=== PATIENT | male | born 1965 | race Caucasian/White ===

== ENCOUNTER 2022-08-06 18:29 | Inpatient (IN) | payer MEDICARE, MEDICAID, SELFPAY ==
[2022-08-06 20:22] VITALS: BMI 32.5
[2022-08-06] MEDS: Aspirin Enteric Coated 81 MG TABLET.DR PO (22:11)
[2022-08-06] MEDS: traZODone HCL 50 MG TABLET PO (22:11)
[2022-08-06] MEDS: Gabapentin 400 MG CAPSULE PO (22:12)
[2022-08-06] MEDS: cloNIDine HCL 0.1 MG TABLET PO (22:12)
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
[2022-08-07 07:54] LABS: Alanine Aminotransferase 81 U/L (0-40); Albumin Level 3.4 g/dL (3.5-5.0); Alkaline Phosphatase 59 U/L (39-117); Anion Gap 13 (12-20); Aspartate Amino Transferase 76 U/L (5-37); Bilirubin Total 0.4 mg/dL (0.0-1.0); Blood Urea Nitrogen 12 mg/dL (9-16); Calcium 9.2 mg/dL (8.4-10.2); Carbon Dioxide 28 mmol/L (22-29); Chloride 104 mmol/L (96-108); Cholesterol 128 mg/dL; Creatinine Clr Calc Pharmacy 116.5; Estimated Glomerular Filt Rate > 60; Glucose Fasting 228 mg/dL (60-99); HDL Cholesterol 32 mg/dL; LDL Cholesterol Calculated 60 mg/dl; Potassium 3.9 mmol/L (3.3-5.1); Sodium 141 mmol/L (135-145); Triglycerides 181 mg/dL
[2022-08-07 08:15] VITALS: BP 137/87; PULSE 63; RESP 16; TEMP 36.3; O2SAT 97
[2022-08-07] MEDS: cloNIDine HCL 0.1 MG TABLET PO ×2 (08:50→21:11)
[2022-08-07] MEDS: Atorvastatin Calcium 10 MG TABLET PO (08:50)
[2022-08-07] MEDS: amLODIPine Besylate 10 MG TABLET PO (08:50)
[2022-08-07] MEDS: Cholecalciferol (Vitamin D3) 25 MCG TABLET PO (08:50)
[2022-08-07] MEDS: Ferrous Sulfate 324 MG TABLET.DR 325 MG PO (08:50)
[2022-08-07] MEDS: buPROPion HCl XL 300 MG TAB.ER.24H PO (08:50)
[2022-08-07] MEDS: hydrOXYzine HCL 25 MG TABLET PO (11:51)
--- NOTE | 2022-08-07 11:51 | HO.PM.IMCN ---
History of Present Illness Data of Consult Service Date: 08/07/22 Requesting physician: Rochelle Urena Primary Care Provider: Unknown Physician HPI Reason for consult: medical H&P 57 year old male with history of hypertension, HLD, hx CVA with sequela left sided hemiparesis, current every day smoker 40+ pack year history, history crack cocaine abuse with relapse 1 week ago, everyday MJ smoker, chronic pain disorder, and alcohol use disorder admitted to psychiatry with consult placed to medicine for medical H&P. He states he has never been diagnosed with any chronic lung disease but does experience sob/durant and chronic intermittent cough which has been long standing and states his PCP is aware. Denies orthopnea/PND. No cp or edema. He does follow for routine lung cancer screenings and states most recent CT was without abnormality. He states he drinks 4 25oz beers and several nips every other day. Denies withdrawal symptoms. Reports no desire to quit substance use because he does not care if he lives or dies. Pt with hyperglycemia of 228. Pt denies hx diabetes, states he has been told he is borderline . Review of Systems Review of Systems: General: No fevers, malaise, unintentional weight loss HEENT: No blurred vision, diplopia. No sore throat, nasal congestion, rhinorrhea, sinus pain, ear pain Cardiovascular: No chest pain, palpitations, or leg edema Respiratory: +sob, +durant. +cough. No wheezing GI: No abdominal pain, nausea, vomiting, diarrhea, constipation, melena, hematochezia : No dysuria, hematuria, increased urinary frequency, decreased urinary output MSK: No myalgia, back pain Neuro: No headaches, weakness, paresthesias Skin: No rashes or lesions [facility] Medical History (Updated 08/07/22 @ 14:08 by EMILIA Blount) Alcohol abuse Chronic cough Chronic dyspnea Cigarette smoker Crack cocaine use Hemiparesis affecting left side as late effect of cerebrovascular accident History of CVA (cerebrovascular accident) Hyperlipidemia Hypertension Paronychia of fingers of both hands Type 2 diabetes mellitus Social History Household Members: Other Household Members Other:: 8 roommates Housing: Apartment Do you presently have visiting nurse or other home services: Yes Patient Tobacco Use Status: Current everyday Tobacco user Tobacco use type: Cigarette Cigarette Packs Per Day: 1 Cigarettes Per Day: 20.0 Smoked in Last 30 Days: Yes e-Cigarette/Vaping Use: Never Used Patient Interested in Nicotine Replacement: Yes (Pt wants gum and patch) Patient Given Instructions on How to Stop Smoking: Yes Date Education Initiated: 08/06/22 Second Hand Smoke Exposure: Yes Substance Use Type: Crack/Cocaine and Marijuana Substance Use Frequency: Daily Last Used Substance: Just Prior to Admission Last Used Substance Other:: Pt reports a cocaine binge over 1 week ago; marijuana daily Currently Displaying Signs/Symptoms of Drug Intoxication Withdrawal: No Any prior treatment program specific to substance use: Yes (for cocaine and marijuana in the past, several years ago last time) Have you been hit, kicked, punched, or otherwise hurt by someone within the past year? If so, by whom?: No Do you feel safe in your current relationship?: No Current Relationship Is there a partner from a previous relationship who is making you feel unsafe now?: No Are you made to feel afraid or neglected: No Spiritual Healthcare Practices: None Adventist Healthcare Practices: None Cultural Healthcare Practices: None Advance Directives: No Advance Directives Information Provided: Yes Do you have thoughts of harming others: None Do you have a plan to hurt others: No Plan Recently lost weight without trying: No Eating poorly because of decreased appetite: No Nutrition Risks: No Nutritional Risk, Dental problems and Difficulty chewing Poor oral hygiene: No (Pt reports needs dental care) Meds Allergies Allergy/AdvReac Type Severity Reaction Status Date / Time No Known Allergies Allergy Unverified 04/03/20 18:54 [No Known Allergies*] Active Medications: Current Medications Acetaminophen (Acetaminophen 325 Mg Tablet) 650 mg PO Q6H PRN PRN Reason: Headache/Pain Mild Scale (1-3) Al Hydroxide/Mg Hydroxide (Magnesium Hydrox/Alum Hydrox 30 Ml Oral.Susp) 30 ml PO Q6H PRN PRN Reason: Heartburn/Nausea Amlodipine Besylate (Amlodipine Besylate 10 Mg Tablet) 10 mg PO DAILY TESS; Protocol Last Admin: 08/07/22 08:50 Dose: 10 mg Aspirin (Aspirin Enteric Coated 81 Mg Tablet.) 81 mg PO BEDTIME TESS Last Admin: 08/06/22 22:11 Dose: 81 mg Atorvastatin Calcium (Atorvastatin Calcium 10 Mg Tablet) 10 mg PO DAILY TESS Last Admin: 08/07/22 08:50 Dose: 10 mg Benzocaine (Throat Lozenge, Medicated Lozenge) 1 lozenge MUCOUS MEM Q2H PRN PRN Reason: Sore Throat Bupropion HCl (Bupropion Hcl Xl 300 Mg Tab.Er.24h) 300 mg PO DAILY [facility] Last Admin: 08/07/22 08:50 Dose: 300 mg Clonidine HCl (Clonidine Hcl 0.1 Mg Tablet) 0.1 mg PO BID [facility]; Protocol Last Admin: 08/07/22 08:50 Dose: 0.1 mg Ferrous Sulfate (Ferrous Sulfate 324 Mg Tablet.Dr) 325 mg PO DAILY [facility] Last Admin: 08/07/22 08:50 Dose: 324 mg Gabapentin (Gabapentin 400 Mg Capsule) 400 mg PO BEDTIME [facility] Last Admin: 08/06/22 22:12 Dose: 400 mg Hydroxyzine HCl (Hydroxyzine Hcl 25 Mg Tablet) 25 mg PO Q6H PRN PRN Reason: Anxiety Last Admin: 08/07/22 11:51 Dose: 25 mg Magnesium Hydroxide (Milk Of Magnesia 30 Ml Oral.Susp) 30 ml PO DAILY PRN PRN Reason: Constipation Nicotine (Nicotine 21 Mg Patch.Td24) 21 mg TRANSDERMA DAILY PRN PRN Reason: Nicotine Cravings Nicotine Polacrilex (Nicotine Polacrilex 2 Mg Gum) 4 mg BUCCAL Q2H PRN PRN Reason: Nicotine Cravings Trazodone HCl (Trazodone Hcl 50 Mg Tablet) 50 mg PO BEDTIME PRN PRN Reason: Insomnia Last Admin: 08/06/22 22:11 Dose: 50 mg Vitamin D (Cholecalciferol (Vitamin D3) 25 Mcg Tablet) 25 mcg PO DAILY [facility] Last Admin: 08/07/22 08:50 Dose: 25 mcg Home Medications Medication Instructions Recorded Confirmed Last Taken Type amlodipine 10 mg tablet 1 tab PO DAILY 08/06/22 08/06/22 Unknown History aspirin 81 mg tablet,delayed 1 tab PO BEDTIME 08/06/22 08/06/22 Unknown History release atorvastatin 10 mg tablet 1 tab PO DAILY 08/06/22 08/06/22 Unknown History bupropion HCl 300 mg 24 hr tablet, 1 tab PO QAM 08/06/22 08/06/22 Unknown History extended release cholecalciferol (vitamin D3) 25 1 tab PO DAILY 08/06/22 08/06/22 Unknown History mcg (1,000 unit) tablet clonidine HCl 0.1 mg tablet 1 tab PO BID 08/06/22 08/06/22 Unknown History ferrous sulfate 325 mg (65 mg 1 tab PO QAM 08/06/22 08/06/22 Unknown History iron) tablet (FeroSul) gabapentin 400 mg capsule 1 cap PO BEDTIME 08/06/22 08/06/22 Unknown History ibuprofen 800 mg tablet 1 tab PO DAILY PRN pain 08/06/22 08/06/22 Unknown History lisinopril 40 mg tablet 1 tab PO DAILY 08/06/22 08/06/22 Unknown History multivitamin 1 tab PO DAILY 08/06/22 08/06/22 Unknown History omeprazole 40 mg capsule,delayed 1 cap PO DAILY 08/06/22 08/06/22 Unknown History release ropinirole 1 mg tablet 1 tab PO BEDTIME 08/06/22 08/06/22 Unknown History sertraline 100 mg tablet 1 tab PO DAILY 08/06/22 08/06/22 Unknown History trazodone 100 mg tablet 2 tab PO BEDTIME PRN Insomnia 08/06/22 08/06/22 Unknown History Physical Exam Vital Signs and Narrative: Vital Signs: Last Vital Signs Temp 97.4 F 08/07/22 08:15 Pulse 63 08/07/22 08:15 Resp 16 08/07/22 08:15 BP 137/87 08/07/22 08:15 Pulse Ox 97 08/07/22 08:15 O2 Del Method 08/07/22 08:15 BMI result Body Mass Index 32.5 Constitutional - Awake and Alert, No apparent distress Eyes - PERRLA, EOMI Cardiovascular - S1S2, RRR, No edema Respiratory - Normal lung expansion, Normal respiratory effort, No respiratory distress, rhonchi BLL Gastrointestinal - NT / ND; +BS; No rebound or guarding Extremities - no calf tenderness bilaterally, no swelling Musculoskeletal - Normal inspection, normal ROM Skin - Warm/Dry. Scabbed periungual area with mild erythema multiple fingers bilaterally without purulent drainage Neurological - Alert & oriented x3, CN II-XII in tact, 5/5 strength BUE and BLE Psychological - Appropriate affect Results Labs 08/07/22 07:27 Labs: Laboratory Results - last 24 hr 08/07/22 07:27 Anion Gap 13 Estim Creat Clear Calc 116.5 Estimated GFR > 60 Fasting Glucose 228 H Calcium 9.2 Total Bilirubin 0.4 AST 76 H ALT 81 H Alkaline Phosphatase 59 Total Protein 6.0 L Albumin 3.4 L Triglycerides 181 Cholesterol 128 LDL Cholesterol, Calc 60 HDL Cholesterol 32 Assessment and Plan (1) Routine medical exam: Status: Acute (2) Newly diagnosed diabetes: Status: Acute Plan 57 year old male with history of hypertension, HLD, hx CVA with sequela left sided hemiparesis, current every day smoker 40+ pack year history, history crack cocaine abuse with relapse 1 week ago, everyday MJ smoker, chronic pain disorder, and alcohol use disorder admitted to psychiatry with consult placed to medicine for medical H&P. #Depression/anxiety -Plan per psychiatry #Substance abuse -Plan per psychiatry -Last etoh beverage >48 hours ago. No active w/d symptoms. Monitor for withdrawal #Chronic intermittent cough and shortness of breath -No acute exacerbation. No known chronic lung disease or CHF -No evidence fluid overload -Likely has degree of COPD given significant smoking history -Recommend albuterol inhaler prn -recently underwent Lung CT for lung cancer screening without evidence of significant abnormality per patient -Would recommend outpt follow up with PCP for PFTs outpt. -Counseled on smoking cessation. Continue NRT #Newly diagnosed type 2 diabetes with hyperglycemia -Noted to have hyperglycemia. A1c ordered and consistent with type 2 diabetes at 7.5% (unconntrolled, goal <7.0%) -Recommend diabetes education with nursing staff and outpt -Diabetic diet -POC glucose -Initiate metformin 500mg Daily ER (to reduce risk of side effects) -Humalog on sliding scale with meals for hyperglycemia #Bilateral paronychia -Completed course of keflex. No purulent drainage -Recommend warm soaks #Transaminitis -likely related to NAFLD vs alcohol intake. No abd pain, n/v -Recommend weight loss efforts and outpt follow up #Iron deficiency anemia -No bleeding -Continue ferrous sulfate -Check CBC #HTN- reasonably controlled -Continue lisinopril and amlodipine. Renal function/lytes normal -Monitor BP #History CVA -continue ASA/statin #Hyperglycemia -Hgb A1c added #GERD -continue ppi #Chronic pain disorder -continue gabapentin Thank you for allowing me to participate in this consult. Signing off at this time. Please do not hesitate to call for further questions. Time Spent With Patient Time: Total time managing care of this patient today ____ minutes.
[2022-08-07] MEDS: Nicotine Polacrilex 2 MG GUM 4 MG BUCCAL ×3 (12:24→20:47)
[2022-08-07 13:23] LABS: MANUAL DIFF FLAG NO
[2022-08-07 13:25] LABS: Basophils Absolute Auto 0.1 X10*3/uL (0.0-0.2); Eosinophils Absolute Auto 0.1 X10*3/uL (0.0-0.4); Eosinophils Percent Auto 1.8 % (0-4); Hematocrit 39.5 % (42.0-52.0); Hemoglobin 13.6 g/dl (14.0-18.0); Imm Gran Abs Auto 0.02 X10*3/uL (0.00-0.03); Imm Gran Pct Auto 0.3 % (0.0-0.4); Lymphocytes Absolute Auto 1.7 X10*3/uL (1.2-4.9); Lymphocytes Percent Auto 23.4 % (20-40); Mean Corpuscular HGB Conc 34.4 g/dl (31.0-36.0); Mean Corpuscular Hemoglobin 33.3 pg (27.0-33.0); Mean Corpuscular Volume 96.8 fL (80.0-98.0); Mean Platelet Volume 9.2 fL (9.4-12.4); Monocytes Absolute Auto 0.6 X10*3/uL (0.1-1.2); Monocytes Percent Auto 7.9 % (2-11); Neutrophils Absolute Auto 4.7 x10*3/uL (2.0-8.3); Neutrophils Percent Auto 65.6 % (45-73); Platelet Count 308 X10*3/uL (160-400); Red Blood Count 4.08 X10*6/uL (4.60-5.80); Red Cell Distribution Width 12.4 % (11.0-16.0); White Blood Count 7.2 X10*3/uL (4.8-10.8)
[2022-08-07 13:52] LABS: Estimated Average Glucose 169 mg/dL; Hemoglobin A1c % 7.5 %
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
[2022-08-07 21:00] VITALS: BP 156/90; PULSE 53; TEMP 35.8
[2022-08-07] MEDS: Gabapentin 400 MG CAPSULE PO (21:12)
[2022-08-07] MEDS: Aspirin Enteric Coated 81 MG TABLET.DR PO (21:12)
[2022-08-07] MEDS: traZODone HCL 50 MG TABLET PO (21:14)
[2022-08-07] MEDS: lamoTRIgine 25 MG TABLET PO (21:14)
[2022-08-08 07:19] LABS: Iron 79 mcg/dL (45-160); Percent Iron Saturation 28 % (15-50); Total Iron Binding Capacity 283 mcg/dL (228-428); Unsaturated Iron Binding 204 ug/dL
[2022-08-08 07:34] LABS: Thyroid Stimulating Hormone 4.49 uIU/mL (0.32-4.0)
[2022-08-08 07:48] LABS: Folate 7.9 ng/mL (> or = 4.0); Vitamin B12 279 pg/mL (200-900)
[2022-08-08 09:20] VITALS: BP 142/84; PULSE 64; RESP 16; TEMP 36.3; O2SAT 97
[2022-08-08] MEDS: Ferrous Sulfate 324 MG TABLET.DR 325 MG PO (09:28)
[2022-08-08] MEDS: Cholecalciferol (Vitamin D3) 25 MCG TABLET PO (09:28)
[2022-08-08] MEDS: cloNIDine HCL 0.1 MG TABLET PO ×2 (09:29→21:41)
[2022-08-08] MEDS: Atorvastatin Calcium 10 MG TABLET PO (09:29)
[2022-08-08] MEDS: buPROPion HCl XL 300 MG TAB.ER.24H PO (09:29)
[2022-08-08] MEDS: amLODIPine Besylate 10 MG TABLET PO (09:29)
[2022-08-08] MEDS: Nicotine Polacrilex 2 MG GUM 4 MG BUCCAL ×2 (11:02→16:20)
--- NOTE | 2022-08-08 19:21 | P.PNPSI_ITS ---
Subjective Subjective Date of Service: 08/08/22 Reason For Visit: Recurrent; severe; alcohol use disorder; cocaine u Subjective Notes: Conditional Voluntary Healthcare Proxy: No Guardianship: No Medical Problems Affecting Mental Status: No Interim History: Care reviewed with nursing Tolerating Lamictal Expressed anger with diabetes education. Declines this information and clarifies he will make his own decisions regarding medical treatment and what he will accept. Asks to focus on mental health treatment only while here as this is the reason he came in. Support and education offered. Medication Compliance: Yes Side effects from medications: No Attending Groups: Yes Review of Systems Acute medical concerns: No Medical Review of Systems: unchanged Mental Status Exam Mental Status Exam Patient Appearance: Appropriate Patient Orientation: Person, Place, Time and Situation Level of Consciousness: Alert Patient Behavior: Appropriate, Talkative and Good Eye Contact Mood Description: Depressed Affect Description: Flat Patient Cognition Impaired: No Ability to Follow Directions: Good Speech Pattern: Spontaneous Speech Memory Description: Intact Hallucinations: None Delusions: Not Present Thought Process: Rumination and Goal Oriented Thought Content: positive for Goal Oriented and positive for Suicidal Ideation Depressive Symptoms: Increased Anxiety and Thoughts of /Suicide Judgement: Good Diagnostics Vital Signs (24Hr): Vital Signs - 24 hr 08/07/22 21:00 08/08/22 09:20 Temperature 96.4 F L 97.3 F Pulse Rate 53 64 Respiratory Rate 16 Blood Pressure 156/90 H 142/84 H Pulse Oximetry 97 Oxygen Delivery Method Room Air BMI result Body Mass Index 32.5 Labs 08/07/22 13:07 08/07/22 07:27 Labs: Laboratory Results - last 48 hr 08/07/22 08/07/22 08/07/22 07:27 13:07 13:22 WBC 7.2 RBC 4.08 L Hgb 13.6 L Hct 39.5 L MCV 96.8 MCH 33.3 H MCHC 34.4 RDW 12.4 Plt Count 308 MPV 9.2 L Immature Gran % (Auto) 0.3 Neut % (Auto) 65.6 Lymph % (Auto) 23.4 Routt % (Auto) 7.9 Eos % (Auto) 1.8 Baso % (Auto) 1.0 Lymph # (Auto) 1.7 [place]t # (Auto) 0.6 Eos # (Auto) 0.1 Baso # (Auto) 0.1 Abs Immat Gran (auto) 0.02 Absolute Neuts (auto) 4.7 Absolute Nucleated RBC 0.000 Nucleated RBC % (auto) 0.0 Sodium 141 Potassium 3.9 Chloride 104 Carbon Dioxide 28 Anion Gap 13 BUN 12 Creatinine 0.87 Estim Creat Clear Calc 116.5 Estimated GFR > 60 Fasting Glucose 228 H Estimat Average Glucose 169 Hemoglobin A1c % 7.5 Calcium 9.2 Iron TIBC % Saturation Unsat Iron Binding Total Bilirubin 0.4 AST 76 H ALT 81 H Alkaline Phosphatase 59 Total Protein 6.0 L Albumin 3.4 L Triglycerides 181 Cholesterol 128 LDL Cholesterol, Calc 60 HDL Cholesterol 32 Vitamin B12 Folate TSH 08/08/22 08/08/22 06:47 06:47 WBC RBC Hgb Hct MCV MCH MCHC RDW Plt Count MPV Immature Gran % (Auto) Neut % (Auto) Lymph % (Auto) Routt % (Auto) Eos % (Auto) Baso % (Auto) Lymph # (Auto) Routt # (Auto) Eos # (Auto) Baso # (Auto) Abs Immat Gran (auto) Absolute Neuts (auto) Absolute Nucleated RBC Nucleated RBC % (auto) Sodium Potassium Chloride Carbon Dioxide Anion Gap BUN Creatinine Estim Creat Clear Calc Estimated GFR Fasting Glucose Estimat Average Glucose Hemoglobin A1c % Calcium Iron 79 TIBC 283 % Saturation 28 Unsat Iron Binding 204 Total Bilirubin AST ALT Alkaline Phosphatase Total Protein Albumin Triglycerides Cholesterol LDL Cholesterol, Calc HDL Cholesterol Vitamin B12 279 Folate 7.9 TSH 4.49 H Medications Medications Current Medications Acetaminophen (Acetaminophen 325 Mg Tablet) 650 mg PO Q6H PRN PRN Reason: Headache/Pain Mild Scale (1-3) Al Hydroxide/Mg Hydroxide (Magnesium Hydrox/Alum Hydrox 30 Ml Oral.Susp) 30 ml PO Q6H PRN PRN Reason: Heartburn/Nausea Albuterol Sulfate (Albuterol Sulfate 90 Mcg 8 Gm Inhaler) 2 puff INHALE RQ4H PRN PRN Reason: SOB/Wheezing/cough Amlodipine Besylate (Amlodipine Besylate 10 Mg Tablet) 10 mg PO DAILY [facility]; Protocol Last Admin: 08/08/22 09:29 Dose: 10 mg Aspirin (Aspirin Enteric Coated 81 Mg Tablet.) 81 mg PO BEDTIME [facility] Last Admin: 08/07/22 21:12 Dose: 81 mg Atorvastatin Calcium (Atorvastatin Calcium 10 Mg Tablet) 10 mg PO DAILY [facility] Last Admin: 08/08/22 09:29 Dose: 10 mg Benzocaine (Throat Lozenge, Medicated Lozenge) 1 lozenge MUCOUS MEM Q2H PRN PRN Reason: Sore Throat Bupropion HCl (Bupropion Hcl Xl 300 Mg Tab.Er.24h) 300 mg PO DAILY [facility] Last Admin: 08/08/22 09:29 Dose: 300 mg Clonidine HCl (Clonidine Hcl 0.1 Mg Tablet) 0.1 mg PO BID [facility]; Protocol Last Admin: 08/08/22 09:29 Dose: 0.1 mg Dextrose (Dextrose 50 % 25 Gm/50 Ml Vial) 25 gm IVPUSH Q15M PRN; Protocol PRN Reason: per Hypoglycemia Standing Ord. Ferrous Sulfate (Ferrous Sulfate 324 Mg Tablet.Dr) 325 mg PO DAILY [facility] Last Admin: 08/08/22 09:28 Dose: 324 mg Gabapentin (Gabapentin 400 Mg Capsule) 400 mg PO BEDTIME [facility] Last Admin: 08/07/22 21:12 Dose: 400 mg Glucose (Glucose Gel 15 Gm Gel..Gram.) 15 gm PO Q15M PRN; Protocol PRN Reason: per Hypoglycemia Standing Ord. Hydroxyzine HCl (Hydroxyzine Hcl 25 Mg Tablet) 25 mg PO Q6H PRN PRN Reason: Anxiety Last Admin: 08/07/22 11:51 Dose: 25 mg Insulin Human Lispro (Insulin Lispro 100 Unit/Ml 3 Ml Vial) 0 unit SUBCUT QIDACHS [facility]; Protocol Last Admin: 08/08/22 17:32 Dose: Not Given Lamotrigine (Lamotrigine 25 Mg Tablet) 25 mg PO BEDTIME [facility] Last Admin: 08/07/22 21:14 Dose: 25 mg Loperamide HCl (Loperamide Hcl 2 Mg Capsule) 2 mg PO Q4H PRN PRN Reason: Diarrhea Magnesium Hydroxide (Milk Of Magnesia 30 Ml Oral.Susp) 30 ml PO DAILY PRN PRN Reason: Constipation Metformin HCl (Metformin Hcl Er 500 Mg Tab.Er.24h) 500 mg PO BEDTIME [facility] Last Admin: 08/07/22 21:16 Dose: Not Given Nicotine (Nicotine 21 Mg Patch.Td24) 21 mg TRANSDERMA DAILY PRN PRN Reason: Nicotine Cravings Nicotine Polacrilex (Nicotine Polacrilex 2 Mg Gum) 4 mg BUCCAL Q2H PRN PRN Reason: Nicotine Cravings Last Admin: 08/08/22 16:20 Dose: 4 mg Trazodone HCl (Trazodone Hcl 100 Mg Tablet) 100 mg PO BEDTIME PRN PRN Reason: Insomnia Vitamin D (Cholecalciferol (Vitamin D3) 25 Mcg Tablet) 25 mcg PO DAILY [facility] Last Admin: 08/08/22 09:28 Dose: 25 mcg Allergies Allergies Allergy/AdvReac Type Severity Reaction Status Date / Time No Known Allergies Allergy Unverified 04/03/20 18:54 [No Known Allergies*] Assessment & Plan Assessment & Plan (1) Bipolar disorder: Status: Acute Code(s): F31.9 - Bipolar disorder, unspecified (2) Cannabis use disorder: Status: Acute Code(s): F12.90 - Cannabis use, unspecified, uncomplicated (3) Cocaine use disorder: Status: Acute Code(s): F14.10 - Cocaine abuse, uncomplicated Plan 57yo male, hx of bipolar disorder, alcohol, cocaine, cannabis use disorder. Presents with SI with plan in the context of multiple stressors listed. Plan: B12, Folate, TSH, Iron Profile Lamictal 25 mg HS Collateral contacts Aftercare planning 08/08/22: Continue current plan of care Patient educated on: therapeutic strategies Informed Consent: understands Reason for contiued inpatient stay Substantial Risk for: harm to self and rapid decompensation Time Spent With Patient Time: Total time managing care of this patient today 30____ minutes.
[2022-08-08 21:40] VITALS: BP 152/75; PULSE 55; TEMP 36.2
[2022-08-08] MEDS: traZODone HCL 100 MG TABLET PO (21:40)
[2022-08-08] MEDS: Aspirin Enteric Coated 81 MG TABLET.DR PO (21:41)
[2022-08-08] MEDS: lamoTRIgine 25 MG TABLET PO (21:41)
[2022-08-08] MEDS: Gabapentin 400 MG CAPSULE PO (21:41)
[2022-08-09 09:53] VITALS: BP 156/76; PULSE 58; RESP 16; TEMP 35.9; O2SAT 96
[2022-08-09] MEDS: Ferrous Sulfate 324 MG TABLET.DR 325 MG PO (09:56)
[2022-08-09] MEDS: amLODIPine Besylate 10 MG TABLET PO (09:57)
[2022-08-09] MEDS: buPROPion HCl XL 300 MG TAB.ER.24H PO (09:57)
[2022-08-09] MEDS: Atorvastatin Calcium 10 MG TABLET PO (09:57)
[2022-08-09] MEDS: Cholecalciferol (Vitamin D3) 25 MCG TABLET PO (09:57)
[2022-08-09] MEDS: cloNIDine HCL 0.1 MG TABLET PO ×2 (09:57→22:04)
[2022-08-09] MEDS: Nicotine Polacrilex 2 MG GUM 4 MG BUCCAL ×2 (09:57→16:14)
[2022-08-09] MEDS: hydrOXYzine HCL 25 MG TABLET PO (12:23)
--- NOTE | 2022-08-09 14:10 | HO.PSYCHPN ---
Subjective Subjective Date of Service: 08/09/22 Reason For Visit: Recurrent; severe; alcohol use disorder; cocaine u Subjective Notes: Conditional Voluntary Healthcare Proxy: No Guardianship: No Medical Problems Affecting Mental Status: No Interim History: Review of diagnostics, low hgb, hct, normal iron profile, B12, Folate, elevated LFT's, triglycerides, A1C and TSH. Copies given to pt. He agrees to MVI. Tolerating Lamictal Looking forward to addressing aftercare needs and talking with team about his housing and getting their input on his options. Believes, as he has a voucher, he has options. However, he is told he does not, and wants more clarification. Reports sleep issues. Discussed last natasha increase in Trazodone and options should this continue to be less effective. Medication Compliance: Yes Side effects from medications: No Attending Groups: Yes Review of Systems Acute medical concerns: No Medical Review of Systems: unchanged Mental Status Exam Mental Status Exam Patient Appearance: Appropriate Patient Orientation: Person, Place, Time and Situation Level of Consciousness: Alert Patient Behavior: Appropriate, Talkative and Good Eye Contact Mood Description: Depressed Affect Description: Flat Patient Cognition Impaired: No Ability to Follow Directions: Good Speech Pattern: Spontaneous Speech Memory Description: Intact Hallucinations: None Delusions: Not Present Thought Process: Rumination and Goal Oriented Thought Content: positive for Goal Oriented and positive for Suicidal Ideation Depressive Symptoms: Increased Anxiety and Thoughts of /Suicide Judgement: Good Diagnostics Vital Signs (24Hr): Vital Signs - 24 hr 08/08/22 21:40 08/09/22 09:53 Temperature 97.1 F 96.6 F L Pulse Rate 55 58 Respiratory Rate 16 Blood Pressure 152/75 H 156/76 H Pulse Oximetry 96 Oxygen Delivery Method Room Air BMI result Body Mass Index 32.5 Labs 08/07/22 13:07 08/07/22 07:27 Labs: Laboratory Results - last 48 hr 08/08/22 08/08/22 06:47 06:47 Iron 79 TIBC 283 % Saturation 28 Unsat Iron Binding 204 Vitamin B12 279 Folate 7.9 TSH 4.49 H Medications Medications Current Medications Acetaminophen (Acetaminophen 325 Mg Tablet) 650 mg PO Q6H PRN PRN Reason: Headache/Pain Mild Scale (1-3) Al Hydroxide/Mg Hydroxide (Magnesium Hydrox/Alum Hydrox 30 Ml Oral.Susp) 30 ml PO Q6H PRN PRN Reason: Heartburn/Nausea Albuterol Sulfate (Albuterol Sulfate 90 Mcg 8 Gm Inhaler) 2 puff INHALE RQ4H PRN PRN Reason: SOB/Wheezing/cough Amlodipine Besylate (Amlodipine Besylate 10 Mg Tablet) 10 mg PO DAILY [facility]; Protocol Last Admin: 08/09/22 09:57 Dose: 10 mg Aspirin (Aspirin Enteric Coated 81 Mg Tablet.) 81 mg PO BEDTIME [facility] Last Admin: 08/08/22 21:41 Dose: 81 mg Atorvastatin Calcium (Atorvastatin Calcium 10 Mg Tablet) 10 mg PO BEDTIME [facility] Benzocaine (Throat Lozenge, Medicated Lozenge) 1 lozenge MUCOUS MEM Q2H PRN PRN Reason: Sore Throat Bupropion HCl (Bupropion Hcl Xl 300 Mg Tab.Er.24h) 300 mg PO DAILY [facility] Last Admin: 08/09/22 09:57 Dose: 300 mg Clonidine HCl (Clonidine Hcl 0.1 Mg Tablet) 0.1 mg PO BID [facility]; Protocol Last Admin: 08/09/22 09:57 Dose: 0.1 mg Dextrose (Dextrose 50 % 25 Gm/50 Ml Vial) 25 gm IVPUSH Q15M PRN; Protocol PRN Reason: per Hypoglycemia Standing Ord. Ferrous Sulfate (Ferrous Sulfate 324 Mg Tablet.) 325 mg PO DAILY [facility] Last Admin: 08/09/22 09:56 Dose: 325 mg Gabapentin (Gabapentin 400 Mg Capsule) 400 mg PO BEDTIME [facility] Last Admin: 08/08/22 21:41 Dose: 400 mg Glucose (Glucose Gel 15 Gm Gel..Gram.) 15 gm PO Q15M PRN; Protocol PRN Reason: per Hypoglycemia Standing Ord. Hydroxyzine HCl (Hydroxyzine Hcl 25 Mg Tablet) 25 mg PO Q6H PRN PRN Reason: Anxiety Last Admin: 08/09/22 12:23 Dose: 25 mg Insulin Human Lispro (Insulin Lispro 100 Unit/Ml 3 Ml Vial) 0 unit SUBCUT QIDACHS [facility]; Protocol Last Admin: 08/09/22 11:21 Dose: Not Given Lamotrigine (Lamotrigine 25 Mg Tablet) 25 mg PO BEDTIME [facility] Last Admin: 08/08/22 21:41 Dose: 25 mg Loperamide HCl (Loperamide Hcl 2 Mg Capsule) 2 mg PO Q4H PRN PRN Reason: Diarrhea Magnesium Hydroxide (Milk Of Magnesia 30 Ml Oral.Susp) 30 ml PO DAILY PRN PRN Reason: Constipation Metformin HCl (Metformin Hcl Er 500 Mg Tab.Er.24h) 500 mg PO BEDTIME [facility] Last Admin: 08/08/22 22:19 Dose: Not Given Multivitamins/Vitamin C (Multivitamin Tablet) 1 tab PO DAILY [facility] Nicotine (Nicotine 21 Mg Patch.Td24) 21 mg TRANSDERMA DAILY PRN PRN Reason: Nicotine Cravings Nicotine Polacrilex (Nicotine Polacrilex 2 Mg Gum) 4 mg BUCCAL Q2H PRN PRN Reason: Nicotine Cravings Last Admin: 08/09/22 09:57 Dose: 4 mg Trazodone HCl (Trazodone Hcl 100 Mg Tablet) 100 mg PO BEDTIME PRN PRN Reason: Insomnia Last Admin: 08/08/22 21:40 Dose: 100 mg Vitamin D (Cholecalciferol (Vitamin D3) 25 Mcg Tablet) 25 mcg PO DAILY [facility] Last Admin: 08/09/22 09:57 Dose: 25 mcg Allergies Allergies Allergy/AdvReac Type Severity Reaction Status Date / Time No Known Allergies Allergy Unverified 04/03/20 18:54 [No Known Allergies*] Assessment & Plan Assessment & Plan (1) Bipolar disorder: Status: Acute Code(s): F31.9 - Bipolar disorder, unspecified (2) Cannabis use disorder: Status: Acute Code(s): F12.90 - Cannabis use, unspecified, uncomplicated (3) Cocaine use disorder: Status: Acute Code(s): F14.10 - Cocaine abuse, uncomplicated Plan 57yo male, hx of bipolar disorder, alcohol, cocaine, cannabis use disorder. Presents with SI with plan in the context of multiple stressors listed. Plan: B12, Folate, TSH, Iron Profile Lamictal 25 mg HS Collateral contacts Aftercare planning 08/09/22: Continue Trazodone at 100 mg HS. If ineffective consider Mirtazapine trial MVI 1 daily Patient educated on: medication risk/benefits Informed Consent: understands Reason for contiued inpatient stay Substantial Risk for: harm to self and rapid decompensation Time Spent With Patient Time: Total time managing care of this patient today _30___ minutes.
--- NOTE | 2022-08-09 19:38 | PC.NURSE ---
Patient mentioned to tw that he had a medication for Restless Leg Syndrome (probably Requip) and he would like to have the medicatin ordered while he is on M5
[2022-08-09 21:00] VITALS: BP 159/82; PULSE 69; TEMP 36.2; O2SAT 95
[2022-08-09] MEDS: rOPINIRole HCL 1 MG TABLET PO (22:04)
[2022-08-09] MEDS: lamoTRIgine 25 MG TABLET PO (22:04)
[2022-08-09] MEDS: Aspirin Enteric Coated 81 MG TABLET.DR PO (22:04)
[2022-08-09] MEDS: Gabapentin 400 MG CAPSULE PO (22:04)
[2022-08-09] MEDS: metFORMIN HCl ER 500 MG TAB.ER.24H PO (22:05)
[2022-08-10 08:52] VITALS: BP 131/58; PULSE 58; RESP 16; TEMP 36.4; O2SAT 96
[2022-08-10] MEDS: amLODIPine Besylate 10 MG TABLET PO (08:54)
[2022-08-10] MEDS: Omeprazole 40 MG CAPSULE.DR PO (08:54)
[2022-08-10] MEDS: Ferrous Sulfate 324 MG TABLET.DR 325 MG PO (08:54)
[2022-08-10] MEDS: Multivitamin TABLET 1 TAB PO (08:55)
[2022-08-10] MEDS: Cholecalciferol (Vitamin D3) 25 MCG TABLET PO (08:55)
[2022-08-10] MEDS: buPROPion HCl XL 300 MG TAB.ER.24H PO (08:55)
[2022-08-10] MEDS: cloNIDine HCL 0.1 MG TABLET PO ×2 (08:55→19:43)
[2022-08-10] MEDS: Sertraline HCL 25 MG TABLET PO (09:30)
[2022-08-10] MEDS: Nicotine Polacrilex 2 MG GUM 4 MG BUCCAL ×3 (09:30→19:42)
--- NOTE | 2022-08-10 13:19 | HO.PSYCHPN ---
Subjective Subjective Date of Service: 08/10/22 Reason For Visit: Recurrent; severe; alcohol use disorder; cocaine u Subjective Notes: Conditional Voluntary Healthcare Proxy: No Guardianship: No Medical Problems Affecting Mental Status: No Interim History: Medicine review with pt to discuss his list of meds, rationale for Rx and what had changed since admit. Last evening pt had difficulty with requip not being ordered. When discussed with pharmacy, it appears Gabapentin had replaced it, however, this was not pt's understanding, so he has both now for mgt of RLS. Today, changed Atarax and re-started Lisinopril. Reports he was able to sleep-up at 330 d/t room-mate. Will begin to check into housing voucher specifics with [employer]-states he was told the voucher was only for the building he is in, however, he reports living conditions which are not safe and conducive to his health improving. Reports tolerating regime without SE. Attending some group activities. Medication Compliance: Yes Side effects from medications: No Attending Groups: Intermittent Review of Systems Acute medical concerns: No Medical Review of Systems: unchanged Mental Status Exam Mental Status Exam Patient Appearance: Appropriate Patient Orientation: Person, Place, Time and Situation Level of Consciousness: Alert Patient Behavior: Appropriate, Talkative and Good Eye Contact Mood Description: Depressed Affect Description: Flat Patient Cognition Impaired: No Ability to Follow Directions: Good Speech Pattern: Spontaneous Speech Memory Description: Intact Hallucinations: None Delusions: Not Present Thought Process: Rumination and Goal Oriented Thought Content: positive for Goal Oriented and positive for Suicidal Ideation Depressive Symptoms: Increased Anxiety and Thoughts of /Suicide Judgement: Good Diagnostics Vital Signs (24Hr): Vital Signs - 24 hr 08/09/22 21:00 08/10/22 08:52 Temperature 97.2 F 97.6 F Pulse Rate 69 58 Respiratory Rate 16 Blood Pressure 159/82 H 131/58 L Pulse Oximetry 95 96 Oxygen Delivery Method Room Air Room Air BMI result Body Mass Index 32.5 Labs 08/07/22 13:07 08/07/22 07:27 Medications Medications Current Medications Acetaminophen (Acetaminophen 325 Mg Tablet) 650 mg PO Q6H PRN PRN Reason: Headache/Pain Mild Scale (1-3) Al Hydroxide/Mg Hydroxide (Magnesium Hydrox/Alum Hydrox 30 Ml Oral.Susp) 30 ml PO Q6H PRN PRN Reason: Heartburn/Nausea Albuterol Sulfate (Albuterol Sulfate 90 Mcg 8 Gm Inhaler) 2 puff INHALE RQ4H PRN PRN Reason: SOB/Wheezing/cough Amlodipine Besylate (Amlodipine Besylate 10 Mg Tablet) 10 mg PO DAILY [facility]; Protocol Last Admin: 08/10/22 08:54 Dose: 10 mg Aspirin (Aspirin Enteric Coated 81 Mg Tablet.) 81 mg PO BEDTIME [facility] Last Admin: 08/09/22 22:04 Dose: 81 mg Atorvastatin Calcium (Atorvastatin Calcium 10 Mg Tablet) 10 mg PO BEDTIME [facility] Benzocaine (Throat Lozenge, Medicated Lozenge) 1 lozenge MUCOUS MEM Q2H PRN PRN Reason: Sore Throat Bupropion HCl (Bupropion Hcl Xl 300 Mg Tab.Er.24h) 300 mg PO DAILY [facility] Last Admin: 08/10/22 08:55 Dose: 300 mg Clonidine HCl (Clonidine Hcl 0.1 Mg Tablet) 0.1 mg PO BID [facility]; Protocol Last Admin: 08/10/22 08:55 Dose: 0.1 mg Dextrose (Dextrose 50 % 25 Gm/50 Ml Vial) 25 gm IVPUSH Q15M PRN; Protocol PRN Reason: per Hypoglycemia Standing Ord. Ferrous Sulfate (Ferrous Sulfate 324 Mg Tablet.) 325 mg PO DAILY [facility] Last Admin: 08/10/22 08:54 Dose: 325 mg Gabapentin (Gabapentin 400 Mg Capsule) 400 mg PO BEDTIME [facility] Last Admin: 08/09/22 22:04 Dose: 400 mg Glucose (Glucose Gel 15 Gm Gel..Gram.) 15 gm PO Q15M PRN; Protocol PRN Reason: per Hypoglycemia Standing Ord. Hydroxyzine HCl (Hydroxyzine Hcl 25 Mg Tablet) 25 mg PO Q6H PRN PRN Reason: Anxiety Last Admin: 08/09/22 12:23 Dose: 25 mg Insulin Human Lispro (Insulin Lispro 100 Unit/Ml 3 Ml Vial) 0 unit SUBCUT QIDACHS [facility]; Protocol Last Admin: 08/10/22 12:40 Dose: Not Given Lamotrigine (Lamotrigine 25 Mg Tablet) 25 mg PO BEDTIME [facility] Last Admin: 08/09/22 22:04 Dose: 25 mg Loperamide HCl (Loperamide Hcl 2 Mg Capsule) 2 mg PO Q4H PRN PRN Reason: Diarrhea Magnesium Hydroxide (Milk Of Magnesia 30 Ml Oral.Susp) 30 ml PO DAILY PRN PRN Reason: Constipation Metformin HCl (Metformin Hcl Er 500 Mg Tab.Er.24h) 500 mg PO BEDTIME [facility] Last Admin: 08/09/22 22:05 Dose: 500 mg Multivitamins/Vitamin C (Multivitamin Tablet) 1 tab PO DAILY [facility] Last Admin: 08/10/22 08:55 Dose: 1 tab Nicotine (Nicotine 21 Mg Patch.Td24) 21 mg TRANSDERMA DAILY PRN PRN Reason: Nicotine Cravings Nicotine Polacrilex (Nicotine Polacrilex 2 Mg Gum) 4 mg BUCCAL Q2H PRN PRN Reason: Nicotine Cravings Last Admin: 08/10/22 09:30 Dose: 4 mg Omeprazole (Omeprazole 40 Mg Capsule.Dr) 40 mg PO DAILY@0630 [facility] Last Admin: 08/10/22 08:54 Dose: 40 mg Ropinirole HCl (Ropinirole Hcl 1 Mg Tablet) 1 mg PO BEDTIME [facility] Last Admin: 08/09/22 22:04 Dose: 1 mg Sertraline HCl (Sertraline Hcl 25 Mg Tablet) 25 mg PO DAILY [facility] Last Admin: 08/10/22 09:30 Dose: 25 mg Trazodone HCl (Trazodone Hcl 100 Mg Tablet) 100 mg PO BEDTIME PRN PRN Reason: Insomnia Last Admin: 08/08/22 21:40 Dose: 100 mg Vitamin D (Cholecalciferol (Vitamin D3) 25 Mcg Tablet) 25 mcg PO DAILY [facility] Last Admin: 08/10/22 08:55 Dose: 25 mcg Allergies Allergies Allergy/AdvReac Type Severity Reaction Status Date / Time No Known Allergies Allergy Unverified 04/03/20 18:54 [No Known Allergies*] Assessment & Plan Assessment & Plan (1) Bipolar disorder: Status: Acute Code(s): F31.9 - Bipolar disorder, unspecified (2) Cannabis use disorder: Status: Acute Code(s): F12.90 - Cannabis use, unspecified, uncomplicated (3) Cocaine use disorder: Status: Acute Code(s): F14.10 - Cocaine abuse, uncomplicated Plan 57yo male, hx of bipolar disorder, alcohol, cocaine, cannabis use disorder. Presents with SI with plan in the context of multiple stressors listed. Plan: B12, Folate, TSH, Iron Profile Lamictal 25 mg HS Collateral contacts Aftercare planning 1/23/23: Continue Trazodone at 100 mg HS. If ineffective consider Mirtazapine trial MVI 1 daily 08/10/22: Increase hydroxyzine to 50 mg prn Reinstate Lisinopril 40 mg a.m-pt taking both antihypertensives [employer] Patient educated on: medication risk/benefits and therapeutic strategies Informed Consent: understands Reason for contiued inpatient stay Substantial Risk for: harm to self and rapid decompensation Time Spent With Patient Time: Total time managing care of this patient today _25___ minutes.
[2022-08-10] MEDS: rOPINIRole HCL 1 MG TABLET PO (19:43)
[2022-08-10] MEDS: metFORMIN HCl ER 500 MG TAB.ER.24H PO (19:43)
[2022-08-10] MEDS: Atorvastatin Calcium 10 MG TABLET PO (19:43)
[2022-08-10] MEDS: Aspirin Enteric Coated 81 MG TABLET.DR PO (19:43)
[2022-08-10] MEDS: Gabapentin 400 MG CAPSULE PO (19:43)
[2022-08-10] MEDS: lamoTRIgine 25 MG TABLET PO (19:44)
[2022-08-10 22:00] VITALS: BP 148/68; PULSE 68; RESP 16; TEMP 36.4; O2SAT 96
[2022-08-11 06:00] VITALS: BP 180/93; PULSE 60; RESP 18
[2022-08-11] MEDS: buPROPion HCl XL 300 MG TAB.ER.24H PO (08:06)
[2022-08-11] MEDS: Omeprazole 40 MG CAPSULE.DR PO (08:06)
[2022-08-11] MEDS: Sertraline HCL 25 MG TABLET PO (08:06)
[2022-08-11] MEDS: lisinopriL 40 MG TABLET PO (08:06)
[2022-08-11] MEDS: cloNIDine HCL 0.1 MG TABLET PO ×2 (08:06→20:47)
[2022-08-11] MEDS: amLODIPine Besylate 10 MG TABLET PO (08:06)
[2022-08-11] MEDS: Ferrous Sulfate 324 MG TABLET.DR 325 MG PO (08:06)
[2022-08-11] MEDS: Multivitamin TABLET 1 TAB PO (08:06)
[2022-08-11] MEDS: Cholecalciferol (Vitamin D3) 25 MCG TABLET PO (08:07)
--- NOTE | 2022-08-11 08:53 | HO.PSYCHPN ---
Subjective Subjective Date of Service: 08/11/22 Reason For Visit: Recurrent; severe; alcohol use disorder; cocaine u Subjective Notes: Conditional Voluntary Healthcare Proxy: No Guardianship: No Medical Problems Affecting Mental Status: No Interim History: Reports poor sleep due to angry episode. I went nuts and blew up. States team tw him about blood sugar monitoring-told him he would if not willing to monitor blood sugar-He stated he made the decision to take Metformin and nothing else. States he was told he probably would not have the ability to make decisions much longer if he did not manage the blood sugar. Expressed a great deal of anger and frustration (which appears fear based)- supportive education offered. Medication Compliance: Yes Side effects from medications: No Attending Groups: Intermittent Review of Systems Acute medical concerns: No Medical Review of Systems: unchanged Mental Status Exam Mental Status Exam Patient Appearance: Appropriate Patient Orientation: Person, Place, Time and Situation Level of Consciousness: Alert Patient Behavior: Appropriate, Talkative and Good Eye Contact Mood Description: Depressed Affect Description: Flat Patient Cognition Impaired: No Ability to Follow Directions: Good Speech Pattern: Spontaneous Speech Memory Description: Intact Hallucinations: None Delusions: Not Present Thought Process: Rumination and Goal Oriented Thought Content: positive for Goal Oriented and positive for Suicidal Ideation (denies) Depressive Symptoms: Increased Anxiety and Thoughts of /Suicide (denies) Judgement: Good Diagnostics Vital Signs (24Hr): Vital Signs - 24 hr 08/10/22 22:00 08/11/22 06:00 Temperature 97.6 F Pulse Rate 68 60 Respiratory Rate 16 18 Blood Pressure 148/68 H 180/93 H Pulse Oximetry 96 Oxygen Delivery Method Room Air BMI result Body Mass Index 32.5 Labs 08/07/22 13:07 08/07/22 07:27 Medications Medications Current Medications Acetaminophen (Acetaminophen 325 Mg Tablet) 650 mg PO Q6H PRN PRN Reason: Headache/Pain Mild Scale (1-3) Al Hydroxide/Mg Hydroxide (Magnesium Hydrox/Alum Hydrox 30 Ml Oral.Susp) 30 ml PO Q6H PRN PRN Reason: Heartburn/Nausea Albuterol Sulfate (Albuterol Sulfate 90 Mcg 8 Gm Inhaler) 2 puff INHALE RQ4H PRN PRN Reason: SOB/Wheezing/cough Amlodipine Besylate (Amlodipine Besylate 10 Mg Tablet) 10 mg PO DAILY [facility]; Protocol Last Admin: 08/11/22 08:06 Dose: 10 mg Aspirin (Aspirin Enteric Coated 81 Mg Tablet.) 81 mg PO BEDTIME [facility] Last Admin: 08/10/22 19:43 Dose: 81 mg Atorvastatin Calcium (Atorvastatin Calcium 10 Mg Tablet) 10 mg PO BEDTIME [facility] Last Admin: 08/10/22 19:43 Dose: 10 mg Benzocaine (Throat Lozenge, Medicated Lozenge) 1 lozenge MUCOUS MEM Q2H PRN PRN Reason: Sore Throat Bupropion HCl (Bupropion Hcl Xl 300 Mg Tab.Er.24h) 300 mg PO DAILY [facility] Last Admin: 08/11/22 08:06 Dose: 300 mg Clonidine HCl (Clonidine Hcl 0.1 Mg Tablet) 0.1 mg PO BID [facility]; Protocol Last Admin: 08/11/22 08:06 Dose: 0.1 mg Dextrose (Dextrose 50 % 25 Gm/50 Ml Vial) 25 gm IVPUSH Q15M PRN; Protocol PRN Reason: per Hypoglycemia Standing Ord. Ferrous Sulfate (Ferrous Sulfate 324 Mg Tablet.) 325 mg PO DAILY [facility] Last Admin: 08/11/22 08:06 Dose: 324 mg Gabapentin (Gabapentin 400 Mg Capsule) 400 mg PO BEDTIME [facility] Last Admin: 08/10/22 19:43 Dose: 400 mg Glucose (Glucose Gel 15 Gm Gel..Gram.) 15 gm PO Q15M PRN; Protocol PRN Reason: per Hypoglycemia Standing Ord. Hydroxyzine HCl (Hydroxyzine Hcl 50 Mg Tablet) 50 mg PO Q6H PRN PRN Reason: Anxiety Insulin Human Lispro (Insulin Lispro 100 Unit/Ml 3 Ml Vial) 0 unit SUBCUT QIDACHS [facility]; Protocol Last Admin: 08/11/22 08:09 Dose: Not Given Lamotrigine (Lamotrigine 25 Mg Tablet) 25 mg PO BEDTIME [facility] Last Admin: 08/10/22 19:44 Dose: 25 mg Lisinopril (Lisinopril 40 Mg Tablet) 40 mg PO DAILY [facility]; Protocol Last Admin: 08/11/22 08:06 Dose: 40 mg Loperamide HCl (Loperamide Hcl 2 Mg Capsule) 2 mg PO Q4H PRN PRN Reason: Diarrhea Magnesium Hydroxide (Milk Of Magnesia 30 Ml Oral.Susp) 30 ml PO DAILY PRN PRN Reason: Constipation Metformin HCl (Metformin Hcl Er 500 Mg Tab.Er.24h) 500 mg PO BEDTIME [facility] Last Admin: 08/10/22 19:43 Dose: 500 mg Multivitamins/Vitamin C (Multivitamin Tablet) 1 tab PO DAILY [facility] Last Admin: 08/11/22 08:06 Dose: 1 tab Nicotine (Nicotine 21 Mg Patch.Td24) 21 mg TRANSDERMA DAILY PRN PRN Reason: Nicotine Cravings Nicotine Polacrilex (Nicotine Polacrilex 2 Mg Gum) 4 mg BUCCAL Q2H PRN PRN Reason: Nicotine Cravings Last Admin: 08/10/22 19:42 Dose: 4 mg Omeprazole (Omeprazole 40 Mg Capsule.Dr) 40 mg PO DAILY@0630 [facility] Last Admin: 08/11/22 08:06 Dose: 40 mg Ropinirole HCl (Ropinirole Hcl 1 Mg Tablet) 1 mg PO BEDTIME [facility] Last Admin: 08/10/22 19:43 Dose: 1 mg Sertraline HCl (Sertraline Hcl 25 Mg Tablet) 25 mg PO DAILY [facility] Last Admin: 08/11/22 08:06 Dose: 25 mg Trazodone HCl (Trazodone Hcl 100 Mg Tablet) 100 mg PO BEDTIME PRN PRN Reason: Insomnia Last Admin: 08/08/22 21:40 Dose: 100 mg Vitamin D (Cholecalciferol (Vitamin D3) 25 Mcg Tablet) 25 mcg PO DAILY [facility] Last Admin: 08/11/22 08:07 Dose: 25 mcg Allergies Allergies Allergy/AdvReac Type Severity Reaction Status Date / Time No Known Allergies Allergy Unverified 04/03/20 18:54 [No Known Allergies*] Assessment & Plan Assessment & Plan (1) Bipolar disorder: Status: Acute Code(s): F31.9 - Bipolar disorder, unspecified (2) Cannabis use disorder: Status: Acute Code(s): F12.90 - Cannabis use, unspecified, uncomplicated (3) Cocaine use disorder: Status: Acute Code(s): F14.10 - Cocaine abuse, uncomplicated Plan 57yo male, hx of bipolar disorder, alcohol, cocaine, cannabis use disorder. Presents with SI with plan in the context of multiple stressors listed. Plan: B12, Folate, TSH, Iron Profile Lamictal 25 mg HS Collateral contacts Aftercare planning 08/09/22: Continue Trazodone at 100 mg HS. If ineffective consider Mirtazapine trial MVI 1 daily 1/24/23: Increase hydroxyzine to 50 mg prn Reinstate Lisinopril 40 mg a.m-pt taking both antihypertensives PUBLIC HEALTH REPRESENTATIVE 08/11/22 Message left with [facility] to discuss status of pt's voucher Continue current regime Patient educated on: medication risk/benefits, therapeutic strategies and medical condition Informed Consent: further education needed Reason for contiued inpatient stay Substantial Risk for: harm to self, rapid decompensation and med/psych decompensation Time Spent With Patient Time: Total time managing care of this patient today __35__ minutes.
[2022-08-11] MEDS: Nicotine Polacrilex 2 MG GUM 4 MG BUCCAL ×3 (09:41→20:46)
[2022-08-11 20:40] VITALS: BP 160/95; PULSE 74; TEMP 36.2; O2SAT 97
[2022-08-11] MEDS: Gabapentin 400 MG CAPSULE PO (20:47)
[2022-08-11] MEDS: rOPINIRole HCL 1 MG TABLET PO (20:47)
[2022-08-11] MEDS: metFORMIN HCl ER 500 MG TAB.ER.24H PO (20:47)
[2022-08-11] MEDS: Aspirin Enteric Coated 81 MG TABLET.DR PO (20:47)
[2022-08-11] MEDS: lamoTRIgine 25 MG TABLET PO (20:47)
[2022-08-11] MEDS: Atorvastatin Calcium 10 MG TABLET PO (20:47)
[2022-08-12] MEDS: cloNIDine HCL 0.1 MG TABLET PO ×2 (07:51→21:46)
[2022-08-12] MEDS: buPROPion HCl XL 300 MG TAB.ER.24H PO (07:51)
[2022-08-12] MEDS: Cholecalciferol (Vitamin D3) 25 MCG TABLET PO (07:51)
[2022-08-12] MEDS: Sertraline HCL 25 MG TABLET PO (07:51)
[2022-08-12] MEDS: Multivitamin TABLET 1 TAB PO (07:51)
[2022-08-12] MEDS: lisinopriL 40 MG TABLET PO (07:52)
[2022-08-12] MEDS: Omeprazole 40 MG CAPSULE.DR PO (07:52)
[2022-08-12] MEDS: Ferrous Sulfate 324 MG TABLET.DR 325 MG PO (07:52)
[2022-08-12] MEDS: amLODIPine Besylate 10 MG TABLET PO (07:53)
[2022-08-12 08:00] VITALS: BP 137/84; PULSE 61; RESP 16; TEMP 36; O2SAT 96
[2022-08-12 08:01] VITALS: BMI 32.3
[2022-08-12] MEDS: Nicotine Polacrilex 2 MG GUM 4 MG BUCCAL ×3 (10:36→17:46)
--- NOTE | 2022-08-12 14:46 | HO.PSYCHPN ---
Subjective Subjective Date of Service: 08/12/22 Reason For Visit: Recurrent; severe; alcohol use disorder; cocaine u Subjective Notes: Conditional Voluntary Healthcare Proxy: No Guardianship: No Medical Problems Affecting Mental Status: No Interim History: Case review with [facility] authority, [phone], [place] Pt does not have a voucher. He has $400/month for that building which is a landlord subsidy for shared living in a project based program with [employer]. The subsidy stays with the unit, not the person. Pt is not entitled to a voucher as he did not complete [place] [facility] paperwork housing application. If he were to do this, he would be able to go on the wait list. [facility] is closed to [address] (since 2013), but he may choose other [facility]. Reviewed with pt. We completed a [facility] form. He will review and we will send it in on 08/13. Pt is looking for discharge on 08/13. Discussed and planned. Medication Compliance: Yes Side effects from medications: No Attending Groups: Intermittent Review of Systems Acute medical concerns: No Medical Review of Systems: unchanged Mental Status Exam Mental Status Exam Patient Appearance: Appropriate Patient Orientation: Person, Place, Time and Situation Level of Consciousness: Alert Patient Behavior: Appropriate, Talkative and Good Eye Contact Mood Description: Depressed Affect Description: Flat Patient Cognition Impaired: No Ability to Follow Directions: Good Speech Pattern: Spontaneous Speech Memory Description: Intact Hallucinations: None Delusions: Not Present Thought Process: Rumination and Goal Oriented Thought Content: positive for Goal Oriented and positive for Suicidal Ideation (denies) Depressive Symptoms: Increased Anxiety and Thoughts of /Suicide (denies) Judgement: Good Diagnostics Vital Signs (24Hr): Vital Signs - 24 hr 08/11/22 20:40 08/12/22 08:00 Temperature 97.2 F 96.8 F Pulse Rate 74 61 Respiratory Rate 16 Blood Pressure 160/95 H 137/84 Pulse Oximetry 97 96 Oxygen Delivery Method Room Air Room Air BMI result Body Mass Index 32.3 Labs 08/07/22 13:07 08/07/22 07:27 Medications Medications Current Medications Acetaminophen (Acetaminophen 325 Mg Tablet) 650 mg PO Q6H PRN PRN Reason: Headache/Pain Mild Scale (1-3) Al Hydroxide/Mg Hydroxide (Magnesium Hydrox/Alum Hydrox 30 Ml Oral.Susp) 30 ml PO Q6H PRN PRN Reason: Heartburn/Nausea Albuterol Sulfate (Albuterol Sulfate 90 Mcg 8 Gm Inhaler) 2 puff INHALE RQ4H PRN PRN Reason: SOB/Wheezing/cough Amlodipine Besylate (Amlodipine Besylate 10 Mg Tablet) 10 mg PO DAILY [facility]; Protocol Last Admin: 08/12/22 07:53 Dose: 10 mg Aspirin (Aspirin Enteric Coated 81 Mg Tablet.) 81 mg PO BEDTIME [facility] Last Admin: 08/11/22 20:47 Dose: 81 mg Atorvastatin Calcium (Atorvastatin Calcium 10 Mg Tablet) 10 mg PO BEDTIME [facility] Last Admin: 08/11/22 20:47 Dose: 10 mg Benzocaine (Throat Lozenge, Medicated Lozenge) 1 lozenge MUCOUS MEM Q2H PRN PRN Reason: Sore Throat Bupropion HCl (Bupropion Hcl Xl 300 Mg Tab.Er.24h) 300 mg PO DAILY [facility] Last Admin: 08/12/22 07:51 Dose: 300 mg Clonidine HCl (Clonidine Hcl 0.1 Mg Tablet) 0.1 mg PO BID [facility]; Protocol Last Admin: 08/12/22 07:51 Dose: 0.1 mg Ferrous Sulfate (Ferrous Sulfate 324 Mg Tablet.) 324 mg PO DAILY [facility] Last Admin: 08/12/22 08:00 Dose: Not Given Gabapentin (Gabapentin 400 Mg Capsule) 400 mg PO BEDTIME [facility] Last Admin: 08/11/22 20:47 Dose: 400 mg Hydroxyzine HCl (Hydroxyzine Hcl 50 Mg Tablet) 50 mg PO Q6H PRN PRN Reason: Anxiety Lamotrigine (Lamotrigine 25 Mg Tablet) 25 mg PO BEDTIME [facility] Last Admin: 08/11/22 20:47 Dose: 25 mg Lisinopril (Lisinopril 40 Mg Tablet) 40 mg PO DAILY [facility]; Protocol Last Admin: 08/12/22 07:52 Dose: 40 mg Loperamide HCl (Loperamide Hcl 2 Mg Capsule) 2 mg PO Q4H PRN PRN Reason: Diarrhea Magnesium Hydroxide (Milk Of Magnesia 30 Ml Oral.Susp) 30 ml PO DAILY PRN PRN Reason: Constipation Metformin HCl (Metformin Hcl Er 500 Mg Tab.Er.24h) 500 mg PO BEDTIME [facility] Last Admin: 08/11/22 20:47 Dose: 500 mg Multivitamins/Vitamin C (Multivitamin Tablet) 1 tab PO DAILY [facility] Last Admin: 08/12/22 07:51 Dose: 1 tab Nicotine (Nicotine 21 Mg Patch.Td24) 21 mg TRANSDERMA DAILY PRN PRN Reason: Nicotine Cravings Nicotine Polacrilex (Nicotine Polacrilex 2 Mg Gum) 4 mg BUCCAL Q2H PRN PRN Reason: Nicotine Cravings Last Admin: 08/12/22 13:12 Dose: 4 mg Omeprazole (Omeprazole 40 Mg Capsule.Dr) 40 mg PO DAILY@0630 [facility] Last Admin: 08/12/22 07:52 Dose: 40 mg Ropinirole HCl (Ropinirole Hcl 1 Mg Tablet) 1 mg PO BEDTIME [facility] Last Admin: 08/11/22 20:47 Dose: 1 mg Sertraline HCl (Sertraline Hcl 25 Mg Tablet) 25 mg PO DAILY [facility] Last Admin: 08/12/22 07:51 Dose: 25 mg Trazodone HCl (Trazodone Hcl 100 Mg Tablet) 100 mg PO BEDTIME PRN PRN Reason: Insomnia Last Admin: 08/08/22 21:40 Dose: 100 mg Vitamin D (Cholecalciferol (Vitamin D3) 25 Mcg Tablet) 25 mcg PO DAILY [facility] Last Admin: 08/12/22 07:51 Dose: 25 mcg Allergies Allergies Allergy/AdvReac Type Severity Reaction Status Date / Time No Known Allergies Allergy Unverified 04/03/20 18:54 [No Known Allergies*] Assessment & Plan Assessment & Plan (1) Bipolar disorder: Status: Acute Code(s): F31.9 - Bipolar disorder, unspecified (2) Cannabis use disorder: Status: Acute Code(s): F12.90 - Cannabis use, unspecified, uncomplicated (3) Cocaine use disorder: Status: Acute Code(s): F14.10 - Cocaine abuse, uncomplicated Plan 57yo male, hx of bipolar disorder, alcohol, cocaine, cannabis use disorder. Presents with SI with plan in the context of multiple stressors listed. Plan: B12, Folate, TSH, Iron Profile Lamictal 25 mg HS Collateral contacts Aftercare planning 08/09/22: Continue Trazodone at 100 mg HS. If ineffective consider Mirtazapine trial MVI 1 daily 08/10/22: Increase hydroxyzine to 50 mg prn Reinstate Lisinopril 40 mg a.m-pt taking both antihypertensives [employer] 08/12/22: [facility] form completed Discharge planned for 1/27/23. Patient educated on: medication risk/benefits and therapeutic strategies Informed Consent: understands and further education needed Reason for contiued inpatient stay Substantial Risk for: harm to self, inability to function and rapid decompensation Time Spent With Patient Time: Total time managing care of this patient today __60__ minutes.
[2022-08-12 17:41] VITALS: BP 157/67; PULSE 69; RESP 15; TEMP 35.9; O2SAT 96
[2022-08-12 21:45] VITALS: BP 158/91; PULSE 66; TEMP 35.9
[2022-08-12] MEDS: metFORMIN HCl ER 500 MG TAB.ER.24H PO (21:45)
[2022-08-12] MEDS: Gabapentin 400 MG CAPSULE PO (21:45)
[2022-08-12] MEDS: lamoTRIgine 25 MG TABLET PO (21:45)
[2022-08-12] MEDS: Aspirin Enteric Coated 81 MG TABLET.DR PO (21:46)
[2022-08-12] MEDS: rOPINIRole HCL 1 MG TABLET PO (21:46)
[2022-08-12] MEDS: Atorvastatin Calcium 10 MG TABLET PO (21:46)
[2022-08-13] MEDS: Nicotine Polacrilex 2 MG GUM 4 MG BUCCAL ×2 (04:55→09:52)
[2022-08-13] MEDS: Omeprazole 40 MG CAPSULE.DR PO (04:55)
[2022-08-13] MEDS: lisinopriL 40 MG TABLET PO (08:03)
[2022-08-13] MEDS: Ferrous Sulfate 324 MG TABLET.DR PO (08:03)
[2022-08-13] MEDS: buPROPion HCl XL 300 MG TAB.ER.24H PO (08:03)
[2022-08-13] MEDS: amLODIPine Besylate 10 MG TABLET PO (08:03)
[2022-08-13] MEDS: cloNIDine HCL 0.1 MG TABLET PO (08:03)
[2022-08-13] MEDS: Sertraline HCL 25 MG TABLET PO (08:03)
[2022-08-13] MEDS: Cholecalciferol (Vitamin D3) 25 MCG TABLET PO (08:03)
[2022-08-13] MEDS: Multivitamin TABLET 1 TAB PO (08:03)
[2022-08-13 08:06] VITALS: BP 133/100; PULSE 60; RESP 16; TEMP 36.2; O2SAT 98
[2022-08-13 08:40] VITALS: BP 138/90; PULSE 60
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
== END 2022-08-13 13:40 | disposition home or self-care (01) | DRG 885 ==
PROVIDERS: Physician Assistant; Admitting Provider Psychiatry & Neurology Psychiatry; Visit Provider Clinical Nurse Specialist Psychiatric/Mental Health, Adult
DX: F31.9 Bipolar disorder, unspecified (principal); R45.851 Suicidal ideations; I69.354 Hemiplegia and hemiparesis following cerebral infarction affecting left non-dominant side; E78.5 Hyperlipidemia, unspecified; I10 Essential (primary) hypertension; F14.10 Cocaine abuse, uncomplicated; F12.10 Cannabis abuse, uncomplicated; F10.20 Alcohol dependence, uncomplicated; F17.210 Nicotine dependence, cigarettes, uncomplicated; Z71.6 Tobacco abuse counseling; Z79.82 Long term (current) use of aspirin; Z79.84 Long term (current) use of oral hypoglycemic drugs; Z79.899 Other long term (current) drug therapy
CPT/HCPCS: 36415; 80053; 80061; 82607; 82746; 83036; 83540; 84443; 85025